=== PATIENT | male | born 1970 | race Caucasian/White ===

== ENCOUNTER 2016-12-29 12:58 | Day surgery (SDC) | payer MEDICARE, OTHER ==
[2016-12-29] VITALS (7 sets, daily range): BP systolic 115–140; BP diastolic 82–99; PULSE 66–78; TEMP 98.3–99
[~2016-12-29] VITALS: Ht 160 cm; Wt 43.4 kg
[2016-12-29] MEDS ORDERED: OXYCODONE H5 MG/5 ML PO (14:00)
[2016-12-29] MEDS ORDERED: PRILOSEC 20MG20 MG PO (14:01)
[2016-12-29] MEDS ORDERED: ZOFRAN ODT8 MG PO (14:01)
== END 2016-12-29 17:08 | disposition home or self-care (01) ==
LOC: SDCO 12:58
DX: C16.0 Malignant neoplasm of cardia (principal); C79.9 Secondary malignant neoplasm of unspecified site; R13.10 Dysphagia, unspecified; F17.210 Nicotine dependence, cigarettes, uncomplicated
CPT/HCPCS: C1726; C1769; C1874; J0330; J1644; J2704; J2765; J3010; J7120

== ENCOUNTER → 2017-01-20 | Outpatient (CLI) | payer MEDICARE, OTHER ==
[~2017-01-20] MED LIST: OXYCODONE H5 MG/5 ML PO; PRILOSEC 20MG20 MG PO; ZOFRAN ODT8 MG PO
== END ==
LOC: COL.RAD 14:00
DX: I82.412 Acute embolism and thrombosis of left femoral vein (principal); I82.432 Acute embolism and thrombosis of left popliteal vein; C79.31 Secondary malignant neoplasm of brain
CPT/HCPCS: A9585